=== PATIENT | male | born 1965 | race Caucasian/White ===

== ENCOUNTER → 2020-12-13 | Outpatient (CLI) | payer OTHER ==
--- NOTE | 2020-12-13 11:02 | KCIC ---
EXAM: Brain MRI without contrast. HISTORY: Difficulty with speech. Poor concentration. TECHNIQUE: Multiplanar, multisequence magnetic resonance imaging of the brain was performed without c ontrast. COMPARISON: None. FINDINGS: There is no restricted diffusion to suggest acute or subacute infarction. There is no susce ptibility effect to suggest hemorrhage. There is no mass effect or midline shift. There is no hydroce phalus. There are a few tiny scattered foci of signal change within the cerebral white matter and sheri s. Orbits are unremarkable. There is paranasal sinus mucosal thickening with small right maxillary and sphenoid sinus mucous rete ntion cysts. The mastoid air cells are clear. There are normal flow voids within the cerebral vessels . There is no suspicious calvarial lesion. IMPRESSION: 1. No acute intracranial finding. 2. Few tiny foci of signal change within the cerebral white matter and eric. This is a nonspecific fi nding which is most commonly due to chronic small vessel disease in patients of this age. Electronically signed by: Meena Aldrich MD (12/13/2020 11:00 AM) [id number]
== END ==
LOC: KCIC MRI 09:12
PROVIDERS: ATTEND Nurse Practitioner Family
DX: R47.9 Unspecified speech disturbances (principal); R41.841 Cognitive communication deficit
CPT/HCPCS: 70551